=== PATIENT | female | born 2005 | race Caucasian/White ===

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

== ENCOUNTER 2023-02-21 15:00 | Emergency (ER) | payer BC ==
[~2023-02-21] VITALS: Ht 162.6 cm; Wt 59.0 kg
[2023-02-21 16:57] VITALS: BP 122/70; TEMP 98; O2SAT 99
== END 2023-02-21 16:58 | disposition home or self-care (01) ==
LOC: ER 15:00
DX: S93.504A Unspecified sprain of right lesser toe(s), initial encounter (principal); X58.XXXA Exposure to other specified factors, initial encounter; Y93.89 Activity, other specified; Y92.89 Other specified places as the place of occurrence of the external cause; Y99.8 Other external cause status
CPT/HCPCS: 73660; A4663